=== PATIENT | male | born 1965 | race Two or more races ===

== ENCOUNTER 2021-01-14 13:16 | Outpatient (CLI) | payer OTHER ==
[~2021-01-14 13:16] MED LIST: LIPO-FLAVONOID1 EACH PO; SKELAXIN800 MG PO
== END 2021-01-14 13:25 | disposition home or self-care (01) ==
LOC: NUCLEAR 13:16
PROVIDERS: ATTEND Physical Medicine & Rehabilitation
DX: I87.2 Venous insufficiency (chronic) (peripheral) (principal); I83.91 Asymptomatic varicose veins of right lower extremity

== ENCOUNTER 2021-01-15 11:55 | Outpatient (CLI) | payer OTHER | END 2021-01-15 15:00 | disposition home or self-care (01) | LOC: LAB 11:55 | PROVIDERS: ATTEND Physical Medicine & Rehabilitation | DX: Z20.828 Contact with and (suspected) exposure to other viral communicable diseases (principal); Z11.59 Encounter for screening for other viral diseases ==

== ENCOUNTER 2021-01-17 06:00 | Day surgery (SDC) | payer OTHER ==
[2021-01-17] MEDS ORDERED: CILOXAN5 ML OTIC (11:07)
== END 2021-01-17 12:30 | disposition home or self-care (01) ==
LOC: CIR.AMB 06:00
PROVIDERS: ATTEND Otolaryngology Otology & Neurotology
DX: H91.22 Sudden idiopathic hearing loss, left ear (principal)

== ENCOUNTER 2021-05-05 11:03 | Outpatient (CLI) | payer OTHER ==
[~2021-05-05 11:03] MED LIST changes: +CILOXAN5 ML OTIC
== END 2021-05-05 13:18 | disposition home or self-care (01) ==
LOC: LAB 11:03
PROVIDERS: ATTEND Emergency Medicine Pediatric Emergency Medicine
DX: Z03.818 Encounter for observation for suspected exposure to other biological agents ruled out (principal)

== ENCOUNTER 2021-05-05 15:30 | Outpatient (CLI) | payer OTHER | END 2021-05-05 15:45 | disposition home or self-care (01) | LOC: PPH VACUNA 15:30 | PROVIDERS: ATTEND Emergency Medicine Pediatric Emergency Medicine | DX: Z23 Encounter for immunization (principal) ==

== ENCOUNTER 2022-03-18 15:16 | Outpatient (CLI) | payer OTHER | END 2022-03-18 16:00 | disposition home or self-care (01) | LOC: ASH CLINIC 15:16 | PROVIDERS: ATTEND Physical Medicine & Rehabilitation | DX: U07.1 COVID-19 (principal) ==

== ENCOUNTER 2022-05-04 15:13 | Outpatient (CLI) | payer OTHER | END 2022-05-04 15:20 | disposition home or self-care (01) | LOC: RAD 15:13 | PROVIDERS: ATTEND Physical Medicine & Rehabilitation | DX: N39.0 Urinary tract infection, site not specified (principal); R07.9 Chest pain, unspecified ==

== ENCOUNTER 2023-07-29 09:39 | Emergency (ER) | payer OTHER ==
[~2023-07-29] VITALS: Ht 172.7 cm; Wt 89.8 kg
[2023-07-29] MEDS ORDERED: ONDANSETRON HCL 2 MG/ML VIAL IV STA (10:22)
[2023-07-29] MEDS ORDERED: 0.9 % SODIUM CHLORIDE 1,000 ML IV SCH (10:30)
[2023-07-29] MEDS ORDERED: MEPERIDINE HCL/PF 50 MG/ML VIAL IM ONE (10:30)
[2023-07-29 10:48] LABS: HEMATOCRIT 42.5 % (39.0-48.0); HEMOGLOBIN 15.1 g/dL (13-16.00); MEAN CELL VOLUME 97.4 fL (80.0-100.00); MEAN CORPUSCULAR HEMOGLOBIN 34.7 pg (27.00-32.0); MEAN CORPUSCULAR HGB CONC 35.6 g/dl (32.0-36.0); PLATELET COUNT 229 K/uL (150-450); RED BLOOD COUNT 4.36 M/uL (4.00-6.00); RED CELL DISTRIBUTION WIDTH 13.3 % (11.5-14.5)
[2023-07-29 10:49] LABS: PH,URINE 5.5 (5.0-8.0); URINE APPEARANCE Cloudy; URINE BILIRRUBIN Small (NEGATIVE); URINE BLOOD Large; URINE COLOR Orange; URINE GLUCOSE Negative (NEGATIVE); URINE LEUKOCYTE Small; URINE NITRATE Negative
[2023-07-29 10:53] LABS: URINE BACTERIA 46.6 uL (0.0-1933); URINE EPITHELIAL CELLS 2.7 uL (0.0-38.8); URINE WBC 5.4 uL (0.0-23.2)
[2023-07-29 11:33] LABS: URINE PROTEIN 100 (NEGATIVE)
[2023-07-29 12:03] LABS: CALCIUM 9.3 mg/dL (8.5-10.1); CREATININE SERUM 1.3 mg/dL (0.70-1.30); GFR 56.7; POTASSIUM 4.17 mEq/L (3.5-5.1)
[2023-07-29] MEDS ORDERED: MEPERIDINE HCL/PF 25 MG/ML VIAL IV ONE (15:15)
[2023-07-29] MEDS ORDERED: MORPHINE SULFATE 4 MG/ML VIAL IV ONE (15:45)
[2023-07-29] MEDS ORDERED: ONDANSETRON HCL 2 MG/ML VIAL IV ONE (15:45)
[2023-07-29] MEDS ORDERED: OxyCODONE HCL/APAP UD (PERCOCET) PO ONE (18:00)
== END 2023-07-29 18:11 | disposition home or self-care (01) ==
LOC: ER 09:40
PROVIDERS: Emergency Medicine
DX: N20.1 Calculus of ureter (principal); R10.9 Unspecified abdominal pain; Z87.442 Personal history of urinary calculi; Z88.0 Allergy status to penicillin; Z88.2 Allergy status to sulfonamides; Z88.6 Allergy status to analgesic agent

== ENCOUNTER 2023-08-01 12:33 | Emergency (ER) | payer OTHER ==
[~2023-08-01] VITALS: Ht 172.7 cm; Wt 89.8 kg
[2023-08-01] MEDS ORDERED: 0.9 % SODIUM CHLORIDE 1,000 ML IV SCH (14:30)
[2023-08-01 14:59] LABS: URINE APPEARANCE Clear; URINE BILIRRUBIN Negative (NEGATIVE); URINE BLOOD Large; URINE COLOR Yellow; URINE GLUCOSE Negative (NEGATIVE); URINE LEUKOCYTE Negative; URINE NITRATE Negative; URINE PROTEIN Negative (NEGATIVE); URINE UROBILINOGEN 0.2 E.U./dl
[2023-08-01 15:03] LABS: URINE RBC 19.2 uL (0.0-20.8); URINE WBC 6.7 uL (0.0-23.2)
[2023-08-01 15:19] LABS: HEMATOCRIT 39.4 % (39.0-48.0); HEMOGLOBIN 13.9 g/dL (13-16.00); MEAN CELL VOLUME 97.7 fL (80.0-100.00); MEAN CORPUSCULAR HEMOGLOBIN 34.5 pg (27.00-32.0); MEAN CORPUSCULAR HGB CONC 35.3 g/dl (32.0-36.0); PLATELET COUNT 202 K/uL (150-450); RED BLOOD COUNT 4.04 M/uL (4.00-6.00); RED CELL DISTRIBUTION WIDTH 13.4 % (11.5-14.5)
[2023-08-01 15:32] LABS: URINE CRYSTALS FEW /HPF
[2023-08-01 15:39] LABS: CALCIUM 9.5 mg/dL (8.5-10.1); CREATININE SERUM 1.55 mg/dL (0.70-1.30); GFR 46.28; POTASSIUM 3.98 mEq/L (3.5-5.1)
== END 2023-08-01 19:36 | disposition home or self-care (01) ==
LOC: ER 12:34
PROVIDERS: Emergency Medicine
DX: N20.0 Calculus of kidney (principal); R10.9 Unspecified abdominal pain; Z88.0 Allergy status to penicillin; Z88.1 Allergy status to other antibiotic agents; Z88.6 Allergy status to analgesic agent

== ENCOUNTER 2024-08-27 23:32 | Inpatient (IN) | payer OTHER ==
[~2024-08-27] VITALS: Ht 172.7 cm; Wt 87.5 kg
[2024-08-27] MEDS ORDERED: CELEBREX200MG PO (23:37)
--- NOTE | 2024-08-27 23:37 | NUR ---
PACIENTE REFIERE QUE COMENZO A LAS 11AM CON ALGUNAS PALPITACIONES Y SE JESSE LA PRESION EN DONDE LA ENCONTRO MAC 160/100 Y COMENZO CON DOLOR DE GREER. AL MOMENTO DEL TRIAGE PACIENTE SOLO REFIERE DOLOR DE GREER Y MAC PRESION. REFIERE QUE LA ROSE ESTADO TRATANTO POR HYDRALAZINE 25MG EN LA CASA
[2024-08-27] MEDS ORDERED: ELIQUIS5 M1 PO (23:40)
--- NOTE | 2024-08-27 23:52 | NUR ---
SE JOVITA BP MANUAL Y SE DOCUMETAN EN SISTEMA. SE REALIZA EKG Y SE PRESENTA DR. SHEEHAN
[2024-08-28] MEDS ORDERED: ACETAMINOPHEN 500 MG GEL..CAP PO STA (00:27)
[2024-08-28] MEDS ORDERED: HYOSCYAMINE SULFATE 0.125 MG TAB.SUBL SL STA (00:27)
[2024-08-28] MEDS ORDERED: HYOSCYAMINE SULFATE 0.125 MG TAB.SUBL ONE ×2 (00:31→11:31)
[2024-08-28] MEDS ORDERED: ACETAMINOPHEN 500 MG GEL..CAP PO ONE ×2 (00:31→11:37)
--- NOTE | 2024-08-28 00:43 | NUR ---
PACIENTE ES EVALUADO POR EL . ALEXIS CAIN ORIENTA A PACIENTE SOBRE ORDENES MEDICAS Y VERBALIZA ENTENDER Y ACEPTAR. COLECTA MUESTRAS DE SHILA PARA LAB Y OBTIENE ACCESO VENOSO
[2024-08-28 01:22] LABS: BASO % 0.5 % (0.1-1.2); PLATELET COUNT 222 K/uL (163-369)
[2024-08-28 01:24] LABS: EOS # 0.15 (0.04-0.54); EOS % 2.5 % (0.7-7.0); HEMATOCRIT 32.7 % (40.1-51.0); LYMPH # 0.91 (1.18-3.74); LYMPH % 15.2 % (19.3-53.1); MEAN CORPUSCULAR HEMOGLOBIN 33.5 pg (25.6-32.2); MONO # 0.68 (0.24-0.82); MONO % 11.3 % (4.7-12.5); NEUT # 4.22 (1.56-6.13); NEUT % 70.3 % (34.0-71.1); RED BLOOD COUNT 3.58 M/uL (4.63-6.08); RED CELL DISTRIBUTION WIDTH 12.9 % (11.6-14.4)
[2024-08-28 01:58] LABS: ALBUMIN 3.5 gm/dL (3.4-5.0); BILIRUBIN TOTAL 0.65 mg/dL (0.3-1.2); CALCIUM 8.4 mg/dL (8.5-10.1); GFR 10.26; GLOBULINA 3.3 G/DL (2.4-3.5); POTASSIUM 3.73 mEq/L (3.5-5.1); TOTAL PROTEIN 6.8 gm/dL (6.4-8.2)
[2024-08-28 02:24] LABS: CREATININE SERUM 5.7 mg/dL (0.70-1.30)
[2024-08-28] MEDS ORDERED: SODIUM CHLORIDE 0.45 % 1,000 ML IV ONE (03:00)
[2024-08-28 06:50] LABS: PH,URINE 5.5 (5.0-8.0); URINE APPEARANCE Cloudy; URINE BILIRRUBIN Negative (NEGATIVE); URINE BLOOD Large; URINE COLOR Orange; URINE GLUCOSE Negative (NEGATIVE); URINE KETONE Negative (NEGATIVE); URINE LEUKOCYTE Trace; URINE NITRATE Negative; URINE UROBILINOGEN 0.2 E.U./dl
[2024-08-28 06:54] LABS: URINE EPITHELIAL CELLS 17.5 uL (0.0-38.8); URINE RBC 40.3 uL (0.0-20.8); URINE WBC 8.8 uL (0.0-23.2)
[2024-08-28 07:19] LABS: URINE BACTERIA 1.2 uL (0.0-1933); URINE CAST 0.29 uL (0.0-1.40); URINE PROTEIN 300 (NEGATIVE)
[2024-08-28 07:20] LABS: URINE CRYSTALS MODERATE /HPF
[2024-08-28] MEDS ORDERED: hydrALAZINE HCL 25 MG TABLET PO SCH (10:44)
[2024-08-28] MEDS ORDERED: SODIUM CHLORIDE 0.45 % 1,000 ML IV SCH (10:45)
[2024-08-28] MEDS ORDERED: FAMOTIDINE/PF 20 MG in 0.9 % SODIUM CHLORIDE 100 ML IV SCH (10:45)
[2024-08-28] MEDS ORDERED: hydrALAZINE HCL 20 MG VIAL IV PRN (10:45)
[2024-08-28] MEDS ORDERED: ENOXAPARIN SODIUM 40 MG/0.4 ML SYRINGE SUBCUTANEO SCH (10:46)
[2024-08-28] MEDS ORDERED: ACETAMINOPHEN 500 MG GEL..CAP PO PRN (11:00)
[2024-08-28] MEDS ORDERED: TRAMADOL HCL 50 MG TABLET PO PRN (11:00)
[2024-08-28] MEDS ORDERED: HYOSCYAMINE SULFATE 0.125 MG TAB.SUBL SL ONE (11:30)
[2024-08-28] MEDS ORDERED: ENOXAPARIN SODIUM 40 MG/0.4 ML SYRINGE SUBCUTANEO ONE (11:31)
[2024-08-28] MEDS ORDERED: FAMOTIDINE/PF 20 MG/2 ML VIAL ONE (11:32)
[2024-08-28] MEDS ORDERED: HYOSCYAMINE SULFATE 0.125 MG TAB.SUBL SL SCH (12:00)
[2024-08-28 12:11] VITALS: BP 193/84
[2024-08-28 17:24] VITALS: BP 192/113; O2SAT 96
[2024-08-28 17:29] VITALS: BP 140/84
[2024-08-29] VITALS: BP 183/110; O2SAT 96
[2024-08-29 01:00] VITALS: BP 160/80
[2024-08-29 07:06] LABS: BASO % 0.6 % (0.1-1.2); EOS # 0.12 (0.04-0.54); EOS % 2.2 % (0.7-7.0); HEMATOCRIT 37.6 % (40.1-51.0); HEMOGLOBIN 13.1 g/dL (13.7-17.5); MEAN CORPUSCULAR HEMOGLOBIN 32.5 pg (25.6-32.2); MONO # 0.66 (0.24-0.82); NEUT # 3.72 (1.56-6.13); NEUT % 69.5 % (34.0-71.1); PLATELET COUNT 263 K/uL (163-369); RED BLOOD COUNT 4.03 M/uL (4.63-6.08); RED CELL DISTRIBUTION WIDTH 13.2 % (11.6-14.4)
[2024-08-29 07:20] LABS: ERYTHROCYTE SEDIMENTATION RATE 25 mm/hr (0-20)
[2024-08-29 07:24] LABS: MONO % 12.3 % (4.7-12.5)
[2024-08-29 07:38] LABS: INR 1.09; PARTIAL THROMBOPLASTIN TIME 27.9 SECONDS (22.0-34.0); PROTHROMBIN TIME 11.8 SECONDS (9.0-11.5)
[2024-08-29 07:46] LABS: ALBUMIN 3.2 gm/dL (3.4-5.0); BILIRUBIN TOTAL 0.67 mg/dL (0.3-1.2); CALCIUM 8.5 mg/dL (8.5-10.1); CREATININE SERUM 1.94 mg/dL (0.70-1.30); GFR 35.6; GLOBULINA 3.6 G/DL (2.4-3.5); MAGNESIUM 2.1 mg/dL (1.8-2.4); PHOSPHOROUS 4.1 mg/dL (2.5-4.9); POTASSIUM 4.11 mEq/L (3.5-5.1); TOTAL PROTEIN 6.8 gm/dL (6.4-8.2)
[2024-08-29 08:00] VITALS: BP 172/100; O2SAT 97
[2024-08-29 08:03] LABS: C-REACTIVE PROTEIN 5.31 MG/DL (0.00-0.29)
[2024-08-29] MEDS ORDERED: NIFEDIPINE 30 MG TAB.SA.OSM PO NR (13:30)
[2024-08-29 15:00] VITALS: BP 130/70
[2024-08-29 16:00] VITALS: BP 138/79; O2SAT 97
[2024-08-30 01:29] VITALS: BP 145/79; O2SAT 100
[2024-08-30 08:00] VITALS: BP 154/90; O2SAT 97
[2024-08-30 08:46] LABS: BASO % 0.8 % (0.1-1.2); EOS # 0.29 (0.04-0.54); EOS % 5.9 % (0.7-7.0); HEMATOCRIT 32.9 % (40.1-51.0); HEMOGLOBIN 11.2 g/dL (13.7-17.5); LYMPH # 1.24 (1.18-3.74); LYMPH % 25.3 % (19.3-53.1); MEAN CORPUSCULAR HEMOGLOBIN 32.7 pg (25.6-32.2); MONO # 0.68 (0.24-0.82); NEUT # 2.64 (1.56-6.13); NEUT % 53.9 % (34.0-71.1); PLATELET COUNT 230 K/uL (163-369); RED BLOOD COUNT 3.42 M/uL (4.63-6.08); RED CELL DISTRIBUTION WIDTH 13.2 % (11.6-14.4)
[2024-08-30 08:55] LABS: MONO % 13.9 % (4.7-12.5)
[2024-08-30] MEDS ORDERED: BICALUTAMIDE PO SCH (09:00)
[2024-08-30] MEDS ORDERED: NIFEDIPINE 30 MG TAB.SA.OSM PO SCH (09:00)
[2024-08-30 09:38] LABS: D DIMER 5.23 MG/L
[2024-08-30 09:50] LABS: ALBUMIN 2.6 gm/dL (3.4-5.0); BILIRUBIN TOTAL 0.57 mg/dL (0.3-1.2); CALCIUM 8.5 mg/dL (8.5-10.1); CREATININE SERUM 1.47 mg/dL (0.70-1.30); GFR 49.03; GLOBULINA 3.1 G/DL (2.4-3.5); MAGNESIUM 1.7 mg/dL (1.8-2.4); PHOSPHOROUS 3.2 mg/dL (2.5-4.9); POTASSIUM 4.8 mEq/L (3.5-5.1); TOTAL PROTEIN 5.7 gm/dL (6.4-8.2)
[2024-08-30] MEDS ORDERED: MAGNESIUM SULFATE IN WATER 2 GM/50 ML PIGGYBAG IV NR (13:00)
[2024-08-30 17:39] VITALS: BP 149/79; O2SAT 97
[2024-08-30] MEDS ORDERED: SOD FERRIC GLUC COMPLX/SUCROSE 62.5 MG in 0.9 % SODIUM CHLORIDE 50 ML IV SCH (21:57)
[2024-08-30] MEDS ORDERED: MAGNESIUM CHLORIDE 70 MG TABLET.DR PO ONE (22:15)
[2024-08-31 01:19] VITALS: BP 137/85; O2SAT 100
[2024-08-31 08:34] LABS: ALBUMIN 2.7 gm/dL (3.4-5.0); CALCIUM 8.5 mg/dL (8.5-10.1); CREATININE SERUM 1.3 mg/dL (0.70-1.30); GFR 56.5; MAGNESIUM 1.9 mg/dL (1.8-2.4); PHOSPHOROUS 3.7 mg/dL (2.5-4.9); POTASSIUM 4.17 mEq/L (3.5-5.1)
[2024-08-31] MEDS ORDERED: VITAMIN B COMPLEX 1 EACH PO SCH (09:00)
[2024-08-31 09:34] VITALS: BP 130/82; O2SAT 96
[2024-08-31] MEDS ORDERED: CASODEX50 MG PO (15:36)
[2024-08-31] MEDS ORDERED: HYOSCYAMINE0.125 M1 SL (15:37)
[2024-08-31] MEDS ORDERED: ELIQUIS2.5 MG PO (15:38)
[2024-08-31] MEDS ORDERED: NIFEDIPINE ER30 M1 PO (15:39)
[2024-08-31 16:34] VITALS: BP 140/80; O2SAT 97
[2024-08-31] MEDS ORDERED: FAMOtidine 20 MG TABLET PO SCH (21:00)
[2024-09-02 05:07] LABS: ANTI-THROMBIN III 71 % (75-135); PROTEIN C ACTIVITY 89 % (73-180)
[2024-09-02 07:11] LABS: dRVVT 52.7 sec (0.0-47.0); interp Comment: (.); ptt-la 36.8 sec (0.0-43.5)
== END 2024-08-31 16:53 | disposition home or self-care (01) | DRG 683 ==
LOC: ER 23:32 → SURH 08-28 11:46
PROVIDERS: General Practice; ADMIT Internal Medicine; ATTEND Internal Medicine
PROC: BW21ZZZ Computerized Tomography (CT Scan) of Abdomen and Pelvis (ICD-10-PCS; principal; 2024-08-28)
DX: N17.9 Acute kidney failure, unspecified (principal); C79.11 Secondary malignant neoplasm of bladder; C79.51 Secondary malignant neoplasm of bone; D68.59 Other primary thrombophilia; C61 Malignant neoplasm of prostate; N13.30 Unspecified hydronephrosis; R33.8 Other retention of urine; I12.9 Hypertensive chronic kidney disease with stage 1 through stage 4 chronic kidney disease, or unspecified chronic kidney disease; N18.9 Chronic kidney disease, unspecified

== ENCOUNTER 2024-09-10 09:04 | Emergency (ER) | payer OTHER ==
[~2024-09-10] VITALS: Ht 172.7 cm; Wt 86.2 kg
[~2024-09-10 09:04] MED LIST changes: +CASODEX50 MG PO; +CELEBREX200MG PO; +ELIQUIS2.5 MG PO; +ELIQUIS5 M1 PO; +HYOSCYAMINE0.125 M1 SL; +NIFEDIPINE ER30 M1 PO
[2024-09-10] MEDS ORDERED: CIPRO500 MG (09:12)
[2024-09-10] MEDS ORDERED: METHYLPREDNISOLONE SOD SUCC 125 MG VIAL ONE (10:04)
[2024-09-10] MEDS ORDERED: DIPHENHYDRAMINE HCL 50 MG/ML VIAL 1ML IM STA (10:04)
[2024-09-10] MEDS ORDERED: DIPHENHYDRAMINE HCL 50 MG/ML VIAL 1ML ONE (10:04)
[2024-09-10] MEDS ORDERED: METHYLPREDNISOLONE SOD SUCC 125 MG VIAL IV STA (10:04)
[2024-09-10 10:43] LABS: BASO % 0.8 % (0.1-1.2); EOS # 0.09 (0.04-0.54); EOS % 1.7 % (0.7-7.0); HEMATOCRIT 31.2 % (40.1-51.0); HEMOGLOBIN 10.8 g/dL (13.7-17.5); LYMPH # 0.92 (1.18-3.74); LYMPH % 17.4 % (19.3-53.1); MEAN CORPUSCULAR HEMOGLOBIN 32.2 pg (25.6-32.2); MONO # 0.66 (0.24-0.82); NEUT # 3.55 (1.56-6.13); NEUT % 67.2 % (34.0-71.1); PLATELET COUNT 270 K/uL (163-369); RED BLOOD COUNT 3.35 M/uL (4.63-6.08); RED CELL DISTRIBUTION WIDTH 13.8 % (11.6-14.4)
[2024-09-10 11:18] LABS: MONO % 12.5 % (4.7-12.5)
[2024-09-10 11:56] LABS: CALCIUM 8.3 mg/dL (8.5-10.1); CREATININE SERUM 1.44 mg/dL (0.70-1.30); GFR 50.21; POTASSIUM 3.97 mEq/L (3.5-5.1)
[2024-09-10 12:10] LABS: PH,URINE 5.5 (5.0-8.0); URINE APPEARANCE Clear; URINE BILIRRUBIN Negative (NEGATIVE); URINE BLOOD Moderate; URINE COLOR Yellow; URINE GLUCOSE Negative (NEGATIVE); URINE KETONE Negative (NEGATIVE); URINE LEUKOCYTE Trace; URINE NITRATE Negative; URINE PROTEIN Trace (NEGATIVE); URINE UROBILINOGEN 0.2 E.U./dl
[2024-09-10 12:13] LABS: URINE BACTERIA 26.9 uL (0.0-1933); URINE EPITHELIAL CELLS 3.7 uL (0.0-38.8); URINE WBC 24.3 uL (0.0-23.2)
[2024-09-10 12:51] LABS: URINE CAST 0.44 uL (0.0-1.40)
[2024-09-10] MEDS ORDERED: CEFTRIAXONE SODIUM 1,000 MG VIAL IV STA (13:06)
[2024-09-10] MEDS ORDERED: CEFTRIAXONE SODIUM 1,000 MG VIAL ONE (13:24)
[2024-09-10] MEDS ORDERED: CEFDINIR300 MG PO (15:02)
== END 2024-09-10 14:39 | disposition home or self-care (01) ==
LOC: ER 09:10
PROVIDERS: General Practice
DX: N39.0 Urinary tract infection, site not specified (principal); R21 Rash and other nonspecific skin eruption; I10 Essential (primary) hypertension; E11.9 Type 2 diabetes mellitus without complications; Z88.0 Allergy status to penicillin; Z88.1 Allergy status to other antibiotic agents; Z88.6 Allergy status to analgesic agent

== ENCOUNTER 2024-10-05 08:55 | Outpatient (CLI) | payer OTHER ==
[~2024-10-05 08:55] MED LIST changes: +CEFDINIR300 MG PO; +CIPRO500 MG
== END 2024-10-05 09:00 | disposition home or self-care (01) ==
LOC: TOM 08:55
PROVIDERS: ATTEND Physical Medicine & Rehabilitation
DX: N13.30 Unspecified hydronephrosis (principal)

== ENCOUNTER 2025-03-27 17:55 | Emergency (ER) | payer OTHER ==
[~2025-03-27] VITALS: Ht 172.7 cm; Wt 88.0 kg
[2025-03-27] MEDS ORDERED: HYDRODIURIL12.5 MG PO (18:32)
[2025-03-27] MEDS ORDERED: TAMS0.4C PO (18:34)
[2025-03-27] MEDS ORDERED: ORACEA40 MG PO (18:34)
[2025-03-27] MEDS ORDERED: 8 HOUR650 MG PO (20:15)
[2025-03-27] MEDS ORDERED: MONDOXYNE NL100 MG PO (20:15)
[2025-03-27 20:30] LABS: URINE BILIRRUBIN Negative (NEGATIVE); URINE BLOOD Small; URINE COLOR Yellow; URINE GLUCOSE Negative (NEGATIVE); URINE KETONE Negative (NEGATIVE); URINE LEUKOCYTE Moderate; URINE NITRATE Negative; URINE PROTEIN 30 (NEGATIVE); URINE UROBILINOGEN 1.0 E.U./dl
[2025-03-27 20:31] LABS: URINE BACTERIA 51.4 uL (0.0-1933); URINE RBC 55.3 uL (0.0-20.8); URINE WBC 1186.0 uL (0.0-23.2)
[2025-03-27 20:54] LABS: URINE APPEARANCE CLEAR; URINE CAST 0.00 uL (0.0-1.40); URINE EPITHELIAL CELLS 0.7 uL (0.0-38.8)
== END 2025-03-27 21:49 | disposition home or self-care (01) ==
LOC: ER 17:56
PROVIDERS: Preventive Medicine Public Health & General Preventive Medicine
DX: N45.3 Epididymo-orchitis (principal); N45.1 Epididymitis; N44.00 Torsion of testis, unspecified; I10 Essential (primary) hypertension; N20.0 Calculus of kidney; Z85.46 Personal history of malignant neoplasm of prostate; Z88.6 Allergy status to analgesic agent; Z88.2 Allergy status to sulfonamides; Z88.0 Allergy status to penicillin; N45.2 Orchitis; N39.0 Urinary tract infection, site not specified; B96.29 Other Escherichia coli [E. coli] as the cause of diseases classified elsewhere